=== PATIENT | female | born 1930 | race American Indian/Alaskan Native ===

== ENCOUNTER 2016-11-28 12:57 | Emergency (ER) | payer MEDICARE ==
[2016-11-28] MEDS ORDERED: ZOFRAN IV ONE (14:44)
[2016-11-28] MEDS ORDERED: NACL 0.9% 1000 ML 1,000 ML IV ONE (14:44)
--- NOTE | 2016-11-28 14:48 | Emergency Department Report ---
ED Altered Mental Status HPI - General Chief Complaint: Altered Mental Status Stated Complaint: AMS Time Seen by Provider: 11/28/16 14:37 Source: family, EMS Mode of arrival: Stretcher Limitations: Language Barrier, Altered Mental Status, Physical Limitation - History of Present Illness Initial Comments: Patient is a 86 years old female detention patient history of dementia patient is speaking Japanese no Slovak and her grandson at bedside who is translating patient was sent from her detention because patient became very aggressive with staff. According to her grandson and she usually talk a lot she became very quiet and not talking. She is not cooperating she does not want to take her medication she's fighting with them. MD Complaint: altered mental status, weakness -: Gradual Severity: moderate Context: history of similar presen - Related Data Home Medications Medication Instructions Recorded Confirmed Last Taken Ascorbic Acid [Vitamin C] 500 mg PO BID 07/10/15 12/22/15 Unknown Aspirin EC 81 mg PO DAILY 07/10/15 12/22/15 Unknown Fosamax 70 mg PO 7XD 07/10/15 12/22/15 Unknown Gabapentin 300 mg PO TID 07/10/15 12/22/15 Unknown Multivitamin with Iron 1 tab PO DAILY 07/10/15 12/22/15 Unknown [Multivitamins with Iron] Vitamin A & D 50,000 units PO DAILY 07/10/15 12/22/15 Unknown Acetaminophen [Acetaminophen TAB] 650 mg PO Q6HR PRN 09/01/15 12/22/15 Unknown cloNIDine [Catapres] 0.1 mg PO BID 09/01/15 12/22/15 Unknown Amitriptyline [Elavil] 25 mg PO QHS 12/22/15 12/22/15 Unknown Amlodipine Besylate 10 mg PO QDAY 12/22/15 12/22/15 Unknown AtorvaSTATin [Lipitor] 20 mg PO QHS 12/22/15 12/22/15 Unknown Melatonin 3 mg PO QHS 12/22/15 12/22/15 Unknown Metoprolol Tartrate 25 mg PO BID 12/22/15 12/22/15 Unknown Previous Rx's Medication Instructions Recorded Last Taken Type Ciprofloxacin HCl [Ciprofloxacin 500 mg PO Q12H #14 tab 11/28/16 Unknown Rx TAB] Allergies Allergy/AdvReac Type Severity Reaction Status Date / Time No Known Allergies Allergy Unverified 04/27/13 10:25 ED Review of Systems ROS: Stated complaint: AMS Other details as noted in HPI Comment: Unobtainable due to pts medical conditions ED Past Medical Hx - Past Medical History Hx Hypertension: Yes (noncompliant with meds) Hx Diabetes: Yes Hx Renal Disease: Yes (chronic kidney disease,) Hx Arthritis: Yes Hx Dementia: Yes Additional medical history: abdominal ileus, hypokalemis, dementia, osteoporosis , dysphagia - Surgical History Hx Cholecystectomy: Yes Additional Surgical History: 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, hip replacement - Social History Smoking Status: Unknown if ever smoked - Medications Home Medications: Home Medications Medication Instructions Recorded Confirmed Last Taken Type Ascorbic Acid [Vitamin C] 500 mg PO BID 07/10/15 12/22/15 Unknown History Aspirin EC 81 mg PO DAILY 07/10/15 12/22/15 Unknown History Fosamax 70 mg PO 7XD 07/10/15 12/22/15 Unknown History Gabapentin 300 mg PO TID 07/10/15 12/22/15 Unknown History Multivitamin with Iron 1 tab PO DAILY 07/10/15 12/22/15 Unknown History [Multivitamins with Iron] Vitamin A & D 50,000 units PO DAILY 07/10/15 12/22/15 Unknown History Acetaminophen [Acetaminophen TAB] 650 mg PO Q6HR PRN 09/01/15 12/22/15 Unknown History cloNIDine [Catapres] 0.1 mg PO BID 09/01/15 12/22/15 Unknown History Amitriptyline [Elavil] 25 mg PO QHS 12/22/15 12/22/15 Unknown History Amlodipine Besylate 10 mg PO QDAY 12/22/15 12/22/15 Unknown History AtorvaSTATin [Lipitor] 20 mg PO QHS 12/22/15 12/22/15 Unknown History Melatonin 3 mg PO QHS 12/22/15 12/22/15 Unknown History Metoprolol Tartrate 25 mg PO BID 12/22/15 12/22/15 Unknown History Ciprofloxacin HCl [Ciprofloxacin 500 mg PO Q12H #14 tab 11/28/16 Unknown Rx TAB] ED Physical Exam - General Limitations: Language Barrier, Altered Mental Status, Physical Limitation General appearance: alert, in no apparent distress - Head Head exam: Present: atraumatic, normocephalic - Eye Eye exam: Present: normal appearance, PERRL Pupils: Present: normal accommodation - ENT ENT exam: Present: normal exam - Neck Neck exam: Present: normal inspection. Absent: tenderness, meningismus - Respiratory Respiratory exam: Present: normal lung sounds bilaterally. Absent: respiratory distress, wheezes, rales, rhonchi, stridor, chest wall tenderness, accessory muscle use, decreased breath sounds, prolonged expiratory - Cardiovascular Cardiovascular Exam: Present: tachycardia. Absent: systolic murmur, diastolic murmur - GI/Abdominal GI/Abdominal exam: Present: soft, normal bowel sounds, other (colostomy bag in place; stool color is normal no blood). Absent: tenderness, guarding, rebound, rigid, diminished bowel sounds, organomegaly, mass, bruit, pulsatile mass, hernia - Extremities Exam Extremities exam: Present: normal inspection, full ROM, normal capillary refill. Absent: tenderness - Back Exam Back exam: Present: normal inspection. Absent: tenderness, CVA tenderness (R), CVA tenderness (L) - Neurological Exam Neurological exam: Present: alert, CN II-XII intact. Absent: motor sensory deficit - Psychiatric Psychiatric exam: Present: agitated - Skin Skin exam: Present: warm, dry, intact ED Course Vital Signs 11/28/16 11/28/16 11/28/16 13:52 15:59 19:00 Temperature 98.3 F Pulse Rate 107 H 97 H 92 H Respiratory 17 17 19 Rate Blood Pressure 145/70 Blood Pressure 139/91 144/87 [Right] O2 Sat by Pulse 98 98 99 Oximetry 11/28/16 11/28/16 19:15 19:19 Temperature Pulse Rate 89 Respiratory 18 19 Rate Blood Pressure Blood Pressure [Right] O2 Sat by Pulse 98 Oximetry - Reevaluation(s) Reevaluation #1: 11/28/16 19:13 Patient remained stable in the ER with no evidence of agitation. awaiting mental health assessment if clear patient can go back to her [facility] with cipro for UTI. - Lab Data Result diagrams: 11/28/16 14:21 11/28/16 14:21 Lab Results 11/28/16 11/28/16 11/28/16 Range/Units 14:20 14:21 14:21 WBC 10.3 (4.5-11.0) K/mm3 RBC 3.89 (3.65-5.03) M/mm3 Hgb 11.3 (10.1-14.3) gm/dl Hct 34.4 (30.3-42.9) % MCV 89 (79-97) fl MCH 29 (28-32) pg MCHC 33 (30-34) % RDW 14.9 (13.2-15.2) % Plt Count 298 (140-440) K/mm3 Lymph % (Auto) 32.6 (13.4-35.0) % Bullitt % (Auto) 5.9 (0.0-7.3) % Eos % (Auto) 0.1 (0.0-4.3) % Baso % (Auto) 0.6 (0.0-1.8) % Lymph # 3.4 (1.2-5.4) K/mm3 Bullitt # 0.6 (0.0-0.8) K/mm3 Eos # 0.0 (0.0-0.4) K/mm3 Baso # 0.1 (0.0-0.1) K/mm3 Seg Neutrophils % 60.8 (40.0-70.0) % Seg Neutrophils # 6.3 (1.8-7.7) K/mm3 Sodium 142 (137-145) mmol/L Potassium 3.7 (3.6-5.0) mmol/L Chloride 105.5 (98-107) mmol/L Carbon Dioxide 20 L (22-30) mmol/L Anion Gap 20 mmol/L BUN 24 H (7-17) mg/dL Creatinine 1.1 (0.7-1.2) mg/dL Estimated GFR 57 ml/min BUN/Creatinine Ratio 21.81 % Glucose 191 H (65-100) mg/dL POC Glucose 227 H (70-105) Calcium 9.4 (8.4-10.2) mg/dL Total Bilirubin (0.1-1.2) mg/dL Direct Bilirubin (0-0.2) mg/dL AST (5-40) units/L ALT (7-56) units/L Alkaline Phosphatase (35-129) units/L Total Protein (6.3-8.2) g/dL Albumin (3.9-5) g/dL Albumin/Globulin Ratio % Plasma/Serum Alcohol (0-0.07) gm% 11/28/16 11/28/16 Range/Units 14:45 14:58 WBC (4.5-11.0) K/mm3 RBC (3.65-5.03) M/mm3 Hgb (10.1-14.3) gm/dl Hct (30.3-42.9) % MCV (79-97) fl MCH (28-32) pg MCHC (30-34) % RDW (13.2-15.2) % Plt Count (140-440) K/mm3 Lymph % (Auto) (13.4-35.0) % Bull[place] % (Auto) (0.0-7.3) % Eos % (Auto) (0.0-4.3) % Baso % (Auto) (0.0-1.8) % Lymph # (1.2-5.4) K/mm3 Bullitt # (0.0-0.8) K/mm3 Eos # (0.0-0.4) K/mm3 Baso # (0.0-0.1) K/mm3 Seg Neutrophils % (40.0-70.0) % Seg Neutrophils # (1.8-7.7) K/mm3 Sodium (137-145) mmol/L Potassium (3.6-5.0) mmol/L Chloride (98-107) mmol/L Carbon Dioxide (22-30) mmol/L Anion Gap mmol/L BUN (7-17) mg/dL Creatinine (0.7-1.2) mg/dL Estimated GFR ml/min BUN/Creatinine Ratio % Glucose (65-100) mg/dL POC Glucose (70-105) Calcium (8.4-10.2) mg/dL Total Bilirubin 0.80 (0.1-1.2) mg/dL Direct Bilirubin < 0.2 (0-0.2) mg/dL AST 30 (5-40) units/L ALT 20 (7-56) units/L Alkaline Phosphatase 70 (35-129) units/L Total Protein 8.4 H (6.3-8.2) g/dL Albumin 3.8 L (3.9-5) g/dL Albumin/Globulin Ratio 0.8 % Plasma/Serum Alcohol < 0.01 (0-0.07) gm% Critical care attestation.: If time is entered above; I have spent that time in minutes in the direct care of this critically ill patient, excluding procedure time. ED Disposition Clinical Impression: Altered mental status, Suspected UTI Disposition: DC-01 TO HOME OR SELFCARE Is pt being admited?: No Condition: Stable Instructions: Dementia (ED), Urinary Tract Infection in Women (ED) Referrals: PRIMARY CARE, [Primary Care Provider] - 3-5 Days
[2016-11-28 15:02] LABS: Basophils % (Auto) 0.6 % (0.0-1.8); Eosinophils % (Auto) 0.1 % (0.0-4.3); Hematocrit 34.4 % (30.3-42.9); Hemoglobin 11.3 gm/dl (10.1-14.3); Mean Corpuscular HGB Conc 33 % (30-34); Mean Corpuscular Hemoglobin 29 pg (28-32); Mean Corpuscular Volume 89 fl (79-97); Platelet Count 298 K/mm3 (140-440); Red Blood Count 3.89 M/mm3 (3.65-5.03); Red Cell Distribution Width 14.9 % (13.2-15.2); White Blood Count 10.3 K/mm3 (4.5-11.0)
[2016-11-28 15:05] LABS: BUN/Creatinine Ratio 21.81; Calcium 9.4 mg/dL (8.4-10.2); Chloride 105.5 mmol/L (98-107); Potassium 3.7 mmol/L (3.6-5.0)
[2016-11-28 15:11] LABS: Alanine Aminotransferase 20 units/L (7-56); Albumin 3.8 g/dL (3.9-5); Albumin/Globulin Ratio 0.8 %; Alkaline Phosphatase 70 units/L (35-129); Bilirubin,Direct < 0.2 mg/dL (0-0.2); Total Protein 8.4 g/dL (6.3-8.2)
[2016-11-28] MEDS ORDERED: ROCEPHIN/NS 1 GM/50 ML 1 GM/50 ML BAG IV ONE (15:21)
[2016-11-28 22:42] VITALS: BP 155/122
--- NOTE | 2016-11-29 07:58 | XRay Report ---
Single view chest: History: Chest pain. Findings: Cardiomegaly. Pulmonary venous congestion bilaterally. Suspicion of minimal pleural effusion. No consolidation or pneumothorax. Impression: Probable CHF.
== END 2016-11-28 23:20 | disposition home or self-care (01) ==
LOC: ED 12:57
DX: R41.82 Altered mental status, unspecified (principal); E11.22 Type 2 diabetes mellitus with diabetic chronic kidney disease; I12.9 Hypertensive chronic kidney disease with stage 1 through stage 4 chronic kidney disease, or unspecified chronic kidney disease; N18.9 Chronic kidney disease, unspecified; M19.90 Unspecified osteoarthritis, unspecified site; F03.90 Unspecified dementia, unspecified severity, without behavioral disturbance, psychotic disturbance, mood disturbance, and anxiety; Z79.82 Long term (current) use of aspirin
CPT/HCPCS: 71010; 80048; 80074; 82962; 85025; 96361; 96365; 96375; 99285; G0480; J0696; J2405; 80320